=== PATIENT | male | born 1950 | race Caucasian/White ===

== ENCOUNTER → 2021-11-12 10:03 | Outpatient (CLI) | payer OTHER, SELFPAY ==
[2021-11-12 12:28] LABS: COVID19 -Nasal RAPID Negative (Negative)
== END ==
PROVIDERS: Referring Provider Orthopaedic Surgery Orthopaedic Surgery of the Spine; Visit Provider Family Medicine Sleep Medicine
DX: Z20.822 Contact with and (suspected) exposure to COVID-19 (principal)
CPT/HCPCS: 87635; C9803

== ENCOUNTER 2021-11-15 05:57 | Inpatient (IN) | payer OTHER, SELFPAY ==
[2021-11-09 08:52] VITALS: BMI 28.1
[2021-11-15] VITALS (15 sets, daily range): BP systolic 92–133; BP diastolic 58–78; PULSE 83–109; RESP 10–19; TEMP 36.3–36.6; O2SAT 89–100; BMI 28.1
[2021-11-15] MEDS: LACTATED RINGERS 1,000 ML 42 ML IV ×2 (06:50→09:53)
--- NOTE | 2021-11-15 07:20 | SUR.PREOP ---
CMS checks to legs bi lat are wnl. dp PULSES ARE PALPABLE AND MARKED.Pt. ambulatory with aid pre-op
--- NOTE | 2021-11-15 07:49 | PM.PREOP ---
Pre-operative Note COVID-19 COVID-19 status: Negative Result date/Date tested (Pos, Neg/Pending): 11/14/21 Criteria for continued procedure: Expected advancement of disease process, Possibility delay results in more complex future surgery or treatment, Increased loss of function, Continuing or worsening of significant or severe pain, Deterioration of the patient's condition or overall health and Delay expected to result in less-positive ultimate med/surg outcome Interval Note History & Physical reviewed/Exam performed by Physician: Yes Changes to H&P: No
[2021-11-15] MEDS: CEFAZOLIN 2 GM/20 ML SYRINGE IV ×2 (08:05→15:39)
[2021-11-15] MEDS: BUPIVACAINE LIPOSOME 266 MG/20 ML VIAL INJ (08:30)
[2021-11-15] MEDS: BUPIVACAINE 0.25% (PF) 30 ML, EPINEPHrine 0.3 MG INJ (08:30)
--- NOTE | 2021-11-15 08:43 | SUR.OPER ---
Prone on spine table, head in foam head support, padded chest and pelvic supports, gel pad at knees, lower legs supported by pillows; nipples, genitalia and toes free of pressure, arms secured on foam padded arm boards at <90 degrees abduction. Tape over blanket at thigh secured to table.
--- NOTE | 2021-11-15 13:10 | DI.RAD.S_ITS ---
PROCEDURE: XR LUMBAR SPINE 2-3V INDICATIONS: L2-3, L3-4 TLIF TECHNIQUE: 2 operative C-arm thin views of the lumbar spine were acquired. COMPARISON: None. FINDINGS: 2 operative C-arm views demonstrate presence of multilevel orthopedic fixation level bridging 4 contiguous levels. The levels appear to be L2 through L5. IMPRESSION: Operative imaging utilized for multilevel lumbar fusion surgery. Dictated by: Efe Denise M.D. on 11/15/2021 at 13:33 Approved by: Efe Denise M.D. on 11/15/2021 at 13:34
--- NOTE | 2021-11-15 13:30 | PM.OP.1 ---
Operative Date/Time/Diagnoses Date of procedure: 11/15/21 Time of procedure: 07:45 Pre-op diagnosis: 1. L2-3, L3-4, L4-5 spinal stenosis 2. History of L4-5 fusion 3. Lumbar spondylosis with radiculopathy Post-op diagnosis: same Procedure & Clinicians Procedure: 1. L2-3, L3-4 posterolateral and posterior interbody fusion 2. L2-3, L3-4 posterior interbody cage placement 3. L4-5 posterior non-segmental instrumentation removal 4. L4-5 revision laminectomy with exploration of fusion 5. L2-3, L3-4, L4-5 posterior segmental instrumentation with pedicle screw placement 6. L4-5 posterolatearl fusion 7. [place] of bone marrow from iliac crest through a separate incision 8. Utilization of microsurgical technique and operating microscope 9. Utilization of robotic assisted fusion Same procedure as scheduled: Yes Indications: Patient has been having chronic back pain and worsening lumbar radiculopathy. Patient had prior fusion surgery in 2007 and a and has been doing reasonably well until approximately 3 years ago. Patient failed multiple conservative management with worsening pain weakness and numbness in his lower extremities, left worse than right. Patient has been having difficulty performing activity of daily living. After discussing risks benefits of treatment options, patient elected proceed with surgery. Surgeon: Seng Anderson Per Diem Physical Therapist: Tawana Hinson Click Yes if Unassisted: No Anesthesia Type: General Operative Notes Closure Type: primary Specimen(s): none sent Prosthetic devices, grafts, tissues, transplants, or devices: Globus CREO MIS screws, Rise cages Estimated Blood Loss (mL): 100 Blood products transfused: none Procedure in detail: Patient was seen in the preoperative area. Risks and benefits of the surgery was discussed with the patient. Informed consent was obtained from the patient and placed in the chart. Surgical site was marked. Patient was taken to the operative room. General anesthesia was administered. Prophylactic antibiotic was given to the patient less than 30 min before the incision was made. Patient was placed into a prone position on the Reji table. Patient's back was then prepped and draped in the sterile fashion. Time-out was performed at this time. After patient was prepped and draped, patient's PSIS was palpated and marked bilaterally. Small 1 cm incision was made over the PSIS for placement of the reference probes. Two trocar was placed into the PSIS 1 on each side. The reference probe was attached to the trocar of the reference apparatus. At this time the C-arm imaging was used to confirm AP and lateral of L2,L3, L4, L5 vertebrae and merged the C-arm imaging using the [employer] robotic navigation system with the CT of the lumbar spine. After successful merging was completed and confirmed, skin marker was used to maricruz out the skin incision using the Ivisys robotic arm. Bilateral incision was made at this time. Using patient's previous scar incision was made over the L2, L3, L4, L5 interval on the left side. Fascia was incised in line with skin incision. Patient's previously placed hardware over the L4-5 level was identified by dissecting down to the level the hardware using a Bovie and a Akhtar. The locking caps which was removed using [employer] screwdriver. The locking fabian was then removed from the tulips of the pedicle screws using a Angelita. The pedicle screws were then removed using the screwdriver. The screws were found to have good purchase. Pre templated trajectory was used and guided using the [employer] robotic navigation system for left L2, L3, L4, L5 pedicle screws and right L2, L3, L4 L5 pedicle screws placement. This was done by using the robotic arm to guide the high-speed bur to make a cortical entry point. Next a drill was placed also using the robotic arm and guided using the navigation system drilling partially through bilateral L2, L3, L4, L5 pedicles. Next L2, L3, L4, L5 pedicle screws it was pre templated and measured was placed onto the power straddle bug driver and inserted into the pedicles bilaterally. After all 8 screws were placed C-arm imaging was taken of both AP and lateral to confirm the placement. Excellent placement of the screws were confirmed and a matched precisely with the pre planned screw placement using the navigation system. MARs retractor was inserted using [employer] guidence. ITYZus MARS retractors was placed inside the incision and docked onto the L2 and L3 lamina. Using microsurgical technique and operating microscope, a L2, L3 laminectomy and L2-3, L3-4 facetectomy was performed using a Kerrison rongeur. Patient was found have severe lateral recess and neural foramen stenosis which was fully decompressed after the laminectomy facetectomy. More than 75% of the facets were removed during the process of decompression rendering L2-3, L3-4 level grossly unstable and required a fusion procedure at the same time. The disc space at L2-3, L3-4 was identified, and a total diskectomy was performed at L2-3, L3-4 level. The endplates were decorticated using a rasp and shaver. The total diskectomy and decortication was performed at L2-3, L3-4 level in order to to accomplish a L2-3, L3-4 fusion. The local bone from the laminectomy and facetectomy was saved for local bone grafting. After the total diskectomy and decortication was completed, Trifecta bone graft material was combined with local bone that was harvested earlier. At this time, a separate skin is incision was made over the iliac crest. A Jamshidi needle was inserted into the iliac crest through a separate skin incision. 5 cc of bone marrow aspiration was obtained through the separate skin incision using a Jamshidi needle from the iliac crest. The bone marrow aspiration was combined with local bone and the Trifecta bone grafting material. The bone grafting material was placed into the L2-3, L3-4 interbody space along with a expandable cage. The cage was expanded to its maximum height using the torque limiting screwdriver. The disc preparation as well as the cage insertion were also performed under navigation guidance. After the cage was placed, AP and lateral C-arm imaging was taken to confirm placement of the cage and excellent position was confirmed. The fusion mass on the right side of L4-5 was exposed by performing a right-sided hemilaminectomy at L4-5 level. The hemilaminectomy was performed using the Kerrison rongeur to undercut the lamina as well removing additional epidural scar tissue for purpose of decompressing the epidural space. The fusion mass was explored and was found have visible motion indicating pseudoarthrosis. Globus MARS retractor was inserted and docked onto the L2-3, L3-4, L4-5 posterolateral gutter. Using the power drill, posterior-lateral decortication was performed at L2-3, L3-4, L4-5 level until bleeding cortical bone was identified. The remaining bone grafting material was placed into the L2-3, L3-4, L4-5 posterior lateral gutter he order to accomplish posterolateral fusion at the L2-3, L3-4, L4-5 level. At this time the tulips were attached to the L2, L3, L4-L5 pedicle screw shanks. This was done in L2, L3, L4-L5 pedicles bilaterally. After measuring the length of the rods, they were inserted into the tulips of the pedicle screws and locked in place using locking caps and torque limiting screwdriver bilaterally. Total 8 caps and 2 titanium rods was used in order to complete the posterior instrumentation construct. After all the hardware was placed, and confirmed with AP and lateral C-arm imaging, the wound was then irrigated with sterile normal saline and packed with Ray-Nelson gauze for 3 min to accomplish hemostasis. After the gauze was removed the deep fascia was closed with #1 Vicryl suture. The subcutaneous layer was closed with 2-0 Vicryl. The skin was closed with skin alfredo. Patient tolerated the procedure well. There were no complications. Neuro monitoring system was used to monitor patient's neurologic status throughout entire procedure. There was no disturbance of the neural monitoring signals throughout the case. Complications: none Post-operative Condition: stable Disposition: PACU Plan for aftercare: Admit to inpatient hospital
[2021-11-15] MEDS: fentaNYL 100 MCG/2 ML INJ IV ×2 (13:57→14:10)
[2021-11-15] MEDS: OXYCODONE/ACETAMINOPHEN 5/325 TABLET 1 TAB PO (14:06)
[2021-11-15] MEDS: HYDROMORPHONE 2 MG INJ IV (14:20)
[2021-11-15] MEDS: SODIUM CHLORIDE 0.9% 1,000 ML 100 ML IV (15:34)
[2021-11-15] MEDS: HYDROMORPHONE 0.5 MG INJ IV ×2 (20:03→23:33)
[2021-11-15] MEDS: ATORVASTATIN 20 MG TABLET 10 MG PO (20:14)
[2021-11-15] MEDS: DOCUSATE 100 MG CAPSULE PO (20:15)
[2021-11-15] MEDS: SENNOSIDES 8.6 MG TABLET 17.2 MG PO (20:15)
[2021-11-15] MEDS: GABAPENTIN 300 MG CAPSULE 900 MG PO (20:15)
[2021-11-15] MEDS: lisinopriL 20 MG TABLET PO (20:16)
[2021-11-15] MEDS: OXYCODONE IR 5 MG TABLET 10 MG PO (21:42)
[2021-11-16] VITALS (9 sets, daily range): BP systolic 102–131; BP diastolic 60–73; PULSE 65–100; RESP 16–19; TEMP 36.2–37.4; O2SAT 93–100
[2021-11-16] MEDS: TRAZODONE 50 MG TABLET PO ×2 (00:38→22:21)
[2021-11-16] MEDS: CYCLOBENZAPRINE 10 MG TABLET PO ×2 (00:38→22:21)
[2021-11-16] MEDS: CEFAZOLIN 2 GM/20 ML SYRINGE IV (00:39)
[2021-11-16 05:46] LABS: Hemoglobin 12.1 g/dL (13.5-17.5)
--- NOTE | 2021-11-16 07:56 | PM.PNPO.1 ---
Subjective Subjective Date Patient Seen: 11/16/21 Time Patient Seen: 07:56 Interval history: Patient is complaining of moderate low back pain this morning. He denies any new numbness or tingling since surgery but does note his left lower extremity is experiencing some numbness. This is his baseline, prior to surgery. He is not working with physical therapy yet. He is hoping to be discharged home tomorrow. Exam Vital Signs (past 8 hours): - 11/16/21 00:20 11/16/21 05:58 Temperature 98.2 F 97.9 F Pulse Rate 87 65 Respiratory Rate 18 17 Blood Pressure 131/73 109/64 Pulse Oximetry 97 99 Fraction of Inspired Oxygen 28 Oxygen Delivery Method Room Air Oxygen Flow Rate 2 Narrative Exam Narrative: Pleasant 71-year-old male, resting comfortably in bed, no acute distress. Dressing demonstrates bilateral serosanguineous drainage, no surrounding erythema or induration. Bilateral lower extremity: Motor functions are grossly intact, sensation is decreased left compared to right (patient notes this is his baseline), calves are soft and nontender to palpation. Objective Labs Result Diagrams: 11/16/21 05:20 Labs: Laboratory Results - last 24 hr 11/16/21 05:20 Hgb 12.1 L Hct 38.0 L PFSH Medical History Anxiety about health HLD (hyperlipidemia) HTN (hypertension) Sciatica Spinal stenosis of lumbar region with neurogenic claudication Surgical History History of fusion of lumbar spine (2007) Hx of bilateral cataract extraction Social History household members: none Smoking Status: Former smoker alcohol intake: former Assessment & Plan Post-op Postoperative Procedures: Procedures Operation Date: 11/15/21 07:45 Actual Procedure Side Surgeon p L2-3, L3-4 TLIF with posterior instrumentation, L4-5 HWR, L2-5 PSF with instrumentaion -Robot Not Applicable Seng Anderson MD Postoperative day: 1 Postoperative status: doing well Postoperative status narrative: Stable status post L4-5 hardware removal, L2-3, L3-4 TLIF, L2-5 PSF Postoperative plan narrative: -mobilize with PT. Weightbearing as tolerated. Limit bending, lifting, twisting x6 weeks -continue with multimodal pain management. I encouraged him to take is Tylenol and we will change this to scheduled. He will continue with oxy and Flexeril as needed -DC home, hopefully tomorrow, pending PT -dressing change today, please call me if there is any active bleeding Quality VTE Deep Vein Thrombosis/Pulmonary Embolism Present on Admission: No
[2021-11-16] MEDS: CHOLECALCIFEROL (VITAMIN D3) 400 UNIT TABLET PO (08:08)
[2021-11-16] MEDS: DOCUSATE 100 MG CAPSULE PO ×2 (08:08→20:13)
[2021-11-16] MEDS: OXYCODONE IR 5 MG TABLET 10 MG PO ×2 (08:08→17:49)
--- NOTE | 2021-11-16 09:47 | PT.IIE ---
Current Diagnoses Spinal stenosis, lumbar region with neurogenic claudication (11/15/21) Arthrodesis status (11/15/21) Surgery Performed Operation Date: 11/15/21 07:45 Actual Procedures p L2-3, L3-4 TLIF with posterior instrumentation, L4-5 HWR, L2-5 PSF with instrumentaion -Robot(Not Applicable) - Seng Anderson MD Medical History (Last Reviewed 11/16/21 @ 07:57 by Tawana Hinson PAMichael) Anxiety about health HLD (hyperlipidemia) HTN (hypertension) Sciatica Spinal stenosis of lumbar region with neurogenic claudication Physical Therapy Inpatient Evaluation/Re-Eval M1 PT/OT-IP Prior Functional Status Start: 11/16/21 12:11 Freq: NEEDED Status: Active Protocol: Document 11/16/21 09:47 AB (Rec: 11/16/21 12:24 AB [id number]) Medical Review Prior Functional Status Medical History Reviewed Yes Communication able to make needs known Mobility and Gait pt stated that he is modified independent with all mobilities and ambulation without AD but occasionally uses a forearm crutch depending on back pain Social History Household Members none Living Arrangements RV Number of Floors (Floors) One Floor Number of Stairs To Enter/Railing? 2 steps L rail to enter Home Environment Standard Height Toilet,Walk in Shower Home Equipment Front Wheel Walker,Crutches, Manual Wheelchair,Hand Held Shower Additional Social History Comment stated that his friend that lives next door will be able to assist him as needed. M2 PT-IP Current Condition Start: 11/16/21 12:11 Freq: NEEDED Status: Active Protocol: Document 11/16/21 09:47 AB (Rec: 11/16/21 12:24 AB [id number]) Physical Therapy Current Condition Current Condition Evaluation Date 11/16/21 Treatment Diagnosis L2-3,3-4,4-5 TLIF; difficulty in walking Onset Date 11/15/21 M3 PT-IP Subjective Start: 11/16/21 12:11 Freq: NEEDED Status: Active Protocol: Document 11/16/21 09:47 AB (Rec: 11/16/21 12:24 AB [id number]) Subjective Physical Therapy Visit Type Type Initial Evaluation Visit Start Time 09:47 Visit Stop Time 10:28 Total Visit Minutes 41 Number of EQUIPMENT SERVICE TECHNICIAN Visits 0 Physical Therapy Visit Comments Patient Comments agreeable to do PT; Therapy Pain Assessment Pain When Pain Assessed At Rest Pain Present Pain Present Pain Reported Location Lower Back Intensity 10 Scale Used Numeric (0 - 10) Pain Management Techniques Apply Cold,Distraction, Modification of Treatment,Re- positioning,Timing of Activity with Medications M4 PT-IP Mobility and Gait Start: 11/16/21 12:11 Freq: NEEDED Status: Active Protocol: Document 11/16/21 09:47 AB (Rec: 11/16/21 12:24 AB [id number]) PT-Bed Mobility Assessment Rolling Type of Rolling Log Rolling Level of Assist Minimal Assistance Supine to Sit Supine to Sit Minimal Assistance PT-Transfer Assessment Sit to and From Stand Sit to and from Stand Maximum Assistance,1 Person Assistance,Use of Upper Extremities Equipment Transfer Assistive Device Gait Belt,Front Wheeled Walker Orthotic/Prosthetic Devices or Brace: No Transfers Transfer Destination Chair Transfer Technique ambulated Transfer Ability Level of Assist Moderate Assistance,1 Person Assistance,Use of Upper Extremities Comments Mobility Comments educated pt on back precautions and log roll bed mobility. completed log roll supine to sit min A and max cues. able to sit on EOB SBA. stated that B thighs are still numb. completed sit to stand max A and max cues. ambulated ~ 12 ft to the chair using FWW mod A and cues for steadiness. pt sat on the chair and positioned. agreed to sit up on the chair. call light and table placed within reach. Gait Assessment Gait Gait Assistance Required: Moderate Assistance Distance (Feet) 12 Able to Maintain Weight Bearing Status Yes During Gait Assistive Devices Assistive Device Gait Belt,Front Wheeled Walker Orthotic/Prosthetic Devices or Brace: No Gait Deviations General Gait Pattern Decreased Stride Length, Decreased Feet Clearance,Step- to Gait,Wide Based Gait Factors Limiting Gait Function Factors Limiting Gait Function Decreased Activity Tolerance, Decreased Sensation,Decreased Strength,Limited Range of Motion,Pain,Poor Balance,Poor Safety Awareness PT-Balance Assessment Sitting Balance and Reactions Static Sitting Balance Ability Good Dynamic Sitting Balance Ability Good Standing Balance and Reactions Static Standing Balance Ability Fair Dynamic Standing Balance Ability Fair Device Used FWW M5 PT-IP Objective Assessments Start: 11/16/21 12:11 Freq: NEEDED Status: Active Protocol: Document 11/16/21 09:47 AB (Rec: 11/16/21 12:24 AB [id number]) Orientation Orientation/Cognition Level of Alertness Alert Orientation Name,Place,Situation Language Function Ability No Deficits Noted Safety Awareness Decreased Safety Awareness Memory Description Short Term Impaired Gross Range of Motion Lower Extremity ROM Assessment Within Functional Limits Strength Lower Extremity Strength Assessment Bilaterally Impaired Hip 3+/5 Knee 4-/5 Coordination Assessment Gross Coordination Gross Coordination WNL Sensation Assessment Sensation Gross Sensation Right LE Impaired,Left LE Impaired Sensation Description Numbness Comments Sensation Comments stated that B anterior thighs are still numb Muscle Tone Muscle Tone WNL Yes M6 PT-IP Treatment Start: 11/16/21 12:11 Freq: NEEDED Status: Active Protocol: Document 11/16/21 09:47 AB (Rec: 11/16/21 12:24 AB [id number]) Physical Therapy Treatment Education Education Provided Precautions,Weight Bearing Status,Post-Op Packet,Safety M7 PT-IP Assessment and Plan Start: 11/16/21 12:11 Freq: NEEDED Status: Active Protocol: Document 11/16/21 09:47 AB (Rec: 11/16/21 12:24 AB [id number]) PT Summary Assessment and Plan Potential Rehabilitation Potential Good Status of Condition at Evaluation Evolving Summary Impairments Pain,ROM,Strength,Balance, Coordination,Sensation,Tone, Cognition,Bed Mobility, Transfers,Gait,Activity Tolerance Assessment Summary pt requiring mod to max A using FWW for mobility. pt lives alone and will not have consistent assistance at home. dc plan depending on progress but may require SNF rehab at this time. will continue to assess progress. Goals Bed Mobility Goal Independent Transfer Goal Independent,Front Wheeled Walker Gait Goal Independent,Front Wheel Walker Gait Distance 200 Other Goals improve ambulation using forearm crutch 250 ft mod I up/down 2 steps L rail mod I Days to Meet Goals 10 Frequency of Treatment Frequency Of Treatment Twice a Day Treatment Plan Physical Therapy Treatment Plan Bed Mobility Training,Transfer Training,Gait Training, Therapeutic Exercise,Balance Retraining,Post Op Education, Discharge Planning,Hot or Cold Pack,Neuromuscular Re-ed, Coordination Retraining,Manual Therapy Precautions Lumbar Precautions Log Roll,No Twisting,Limit Bending,Lifting Restriction of 10 lbs,Gait Belt above Incisional Area Recommendations To Nursing Amount of Assist Needed 1 Person Assist Discharge Recommendations PT Discharge Recommendations Home with 02/01 Assist Available,Home Health,SNF Rehab,Home vs SNF Transportation Needs at Discharge Private Vehicle,Wheelchair/ Cabulance
[2021-11-16] MEDS: HYDROMORPHONE 0.5 MG INJ IV ×2 (09:56→20:07)
--- NOTE | 2021-11-16 11:19 | CM.DANOTE ---
Patient is a 71 yo male who was admitted on 11/15/21 for TLIF. Pt has [facility] for insurance and his PCP is not listed. EMR was reviewed. Per Ortho PA, pt tolerated surgery well and has pain controlled and to work with PT/OT today with likely plan of d/c home tomorrow pending progress. PT/OT ordered and pending. SW met bedside with pt and explained role and he confirms he lives in his RV alone in [facility] at the [facility] grounds but has good supportive neighbor friends who have committed to providing assist at d/c and helping get groceries and anything needed. Pt states he has had 2 other similar surgeries and has been able to discharge home with no needs. Pt denies any hx of HH or SNF and does not anticipate any needs at d/c. Pt confirms his friend plans to transport him home at discharge and pt is hopeful discharge can happen tomorrow. Plan: SW to follow closely for PT/OT eval and recommendations to confirm safe plan of home via friend POV and neighbor assist and any further identified discharge planning needs. ASHLIE Hagen Discharge Planning/Care Management CM Discharge Assessment Start: 11/16/21 11:17 Freq: Status: Active Protocol: Document 11/16/21 11:17 BF (Rec: 11/16/21 11:18 BF [id number]) Discharge Planning Assessment Assigned Dice Spotter ASHLIE Mcintyre Advance Directives? No Advance Directives on File No History Provided By Patient,Medical Record Has Patient been admitted in last 30 No days? Prior Living Arrangements RV Household Members none Type of transporation used prior to Drives own vehicle admit Independent with ADL's Yes Is patient alert and oriented? Yes Caregiver for Another No Patient/Family Preference OP PT Therapy Comment Pending PT/OT Barriers to Discharge No Discharge Plan Home Transportation Arrangement friend plans to transport at d /c Referrals Initiated None needed Additional Comment Pending PT/OT eval and recommendations, r/o HH Whiteboard Updated in Patient Room with Yes name and ext. # of Dice Spotter Review Status In Process Please Provide Date Initial DC 11/16/21 Assessment Was Performed Next Review Type Continued Stay Review Pre-Anesthesia Assessment Start: 11/09/21 08:52 Freq: Status: Active Protocol: Document 11/09/21 08:52 CAB (Rec: 11/09/21 09:45 CAB [id number]) Pre-Anesthesia Assessment Preferred Name Kristian Patient Information Reviewed Via Phone Assessment Assessment Completed With Patient Diagnostic Results BMP/CMP,CBC,EKG Comment Outside labs/ECG scanned, COVID screen-needs to schedule Primary Care Provider Benjamín Felix Rai Seen Specialist in Last 12 Months Yes Specialist Seen Noteman,Orthopedist, Urologist Primary Language Honduran Strip Tank Tender Required No Height 172.72 cm Weight 83.915 kg Body Mass Index (BMI) 28.1 Hearing Ability Normal Visual Assist Glasses Dentition Type Teeth, Natural Present Barriers to Learning None Hx Anesthesia Reactions No Hx Family Anesthesia Reaction No Hx Malignant Hyperthermia No Hx Blood Transfusions No Anesthesia Review Requested No alcohol intake former Smoking Status Former smoker Tobacco type pipe how long ago did patient quit smoking Quit in his middle 50's Substance Use Type does not use Pain Present Pain Reported Musculoskeletal Symptoms Back Pain,Difficulty Walking, Limited Range of Motion History of Falling (Recent or History of No ) Patient is completely paralyzed or No completely immobile Mental Status Oriented to own ability Is patient on oxygen? No Does patient have GARCIA/SOB No Hx Sleep Apnea No Currently Taking a Beta Lina No Can You Climb a Flight of Stairs Without Yes SOB Hx Chest Pain No Hx SOB No Hx Syncope or Dizziness No Anti-Coagulant Therapy No Has a Loader Operator Supervisor No Cardiac Testing No Hx Pacemaker/ICD No Pacemaker Rep Required? No Cardiac Clearance Received Not Applicable Diet Type At Home Regular dysphagia No Urinary Catheter Present No Hx Urinary Self Catheterization No Diabetes No Hx Drug Resistant Organism No Presence of External or Internal Medical Yes: Bilateral eye IOLs, Devices lumbar spine Have you had any close contact with No someone diagnosed with COVID-19? Received a COVID vaccine? Yes: Declines booster Received all doses? No Marital Status Lives With none Prior Living Arrangements Support System Friend(s) Does the Patient Have Assistance After Yes: Lives in , neighbors Surgery will assist during the day Patient Discharge Plan Description Return Home Comment Pt advised 1-2 day length of stay per surgeon Feels Safe in Current Environment Yes Been Physically Hurt or Threatened By a No Person in Current Environment Do you have thoughts of harming yourself None or others? Are you currently considering suicide? No Do you have a plan to hurt yourself or No Plan others? Do You Have Any Spiritual Beliefs That No May Affect Your HC Choices? Do You Have Any Cultural Practices That No May Affect Your HC Choices? Comment Yobani Who Can We Speak to About Patient's Care Family, friends Identifying Code for Release of Patient Declines to issue Information Health Care Proxy/Next of Kin Ml (daughter) Health Care Proxy Emergency Contact Name Ml (daughter) Emergency Contact Advance Directives? No Power of Pawn Broker No PAC Instructions Durable medical equipment, Medications to take/avoid, Nasal antibiotic,No ETOH/ petroleum product on skin DOS, NPO,Post-op transportation,Pre -surgical wash,Sensory aids, Sturdy shoes/comfortable clothes,Do not bring valuables and remove jewelry
--- NOTE | 2021-11-16 12:56 | OT.IP.EVAL ---
Current Diagnoses Spinal stenosis, lumbar region with neurogenic claudication (11/15/21) Arthrodesis status (11/15/21) Surgery Performed Operation Date: 11/15/21 07:45 Actual Procedures p L2-3, L3-4 TLIF with posterior instrumentation, L4-5 HWR, L2-5 PSF with instrumentaion -Robot(Not Applicable) - Seng Anderosn MD Past Medical History (Last Reviewed 11/16/21 @ 07:57 by Tawana Hinson PA-C) Anxiety about health History of fusion of lumbar spine (2007) HLD (hyperlipidemia) HTN (hypertension) Hx of bilateral cataract extraction Sciatica Spinal stenosis of lumbar region with neurogenic claudication Surgical History (Last Reviewed 11/16/21 @ 07:57 by Tawana Hinson PA-C) History of fusion of lumbar spine (2007) Hx of bilateral cataract extraction Occupational Therapy Inpatient Evaluation/Re-Eval M1 PT/OT-IP Prior Functional Status Start: 11/16/21 12:11 Freq: NEEDED Status: Active Protocol: Document 11/16/21 12:27 [facility] (Rec: 11/16/21 13:31 [facility] [id number]) Medical Review Prior Functional Status Medical History Reviewed Yes Communication able to make needs known Mobility and Gait pt stated that he is modified independent with all mobilities and ambulation without AD but occasionally uses a forearm crutch depending on back pain Activities of Daily Living and IADL's Pt states able to do all needs of ADL and IADl with increased time due to his back pain. Social History Household Members none Living Arrangements RV Number of Floors (Floors) One Floor Number of Stairs To Enter/Railing? 2 steps L rail to enter and another 2 steps with get into the RV, entrance way too narrow for FWW per pt. Home Environment Standard Height Toilet,Walk in Shower Home Equipment Front Wheel Walker,forearm Crutches, Manual Wheelchair,Hand Held Shower Additional Social History Comment stated that his friend that lives next door will be able to assist him as needed. M2 OT-IP Current Condition Start: 11/16/21 13:09 Freq: Status: Active Protocol: Document 11/16/21 12:27 [facility] (Rec: 11/16/21 13:31 [facility] [id number]) Occupational Therapy Current Condition Current Condition Evaluation Date 11/16/21 Treatment Diagnosis S/p L2-3, L3-4 TLIF L4-5 HWR, L2-5 PSF with inst Diagnosis Onset Date 11/15/21 Post Operative Precautions Lumbar Precautions Log Roll,No Twisting,Limit Bending,Lifting Restriction of 10 lbs,Gait Belt above Incisional Area M3 OT- IP Subjective and Pain Start: 11/16/21 13:09 Freq: Status: Active Protocol: Document 11/16/21 12:27 [facility] (Rec: 11/16/21 13:31 [facility] [id number]) OT- Subjective Occupational Therapy Visit Type Type Initial Evaluation Visit Start Time 12:27 Visit Stop Time 12:56 Total Visit Minutes 29 Occupational Therapy Visit Comments Patient Comments Pt agreed to get up to brush his teeth and wanting to get back to bed. Patient/Caregiver Goals TO go home. OT Pain Assessment Pain When Pain Assessed During Mobility Pain Present Pain Present Pain Reported Location Lower Back Intensity 7 Scale Used Numeric (0 - 10) M4 OT- IP ADL's Start: 11/16/21 13:09 Freq: Status: Active Protocol: Document 11/16/21 12:27 [facility] (Rec: 11/16/21 13:31 [facility] [id number]) OT [id number] General Evaluation Self-Feeding Ability Independent OT ADL-Grooming General Evaluation Grooming Ability Standby Assistance Areas Needing Assistance Retrieving/Set-up of Grooming Items OT ADL-Oral Care General Eval Oral Care Ability Standby Assistance Areas of Assistance Retrieving/Set-Up of Items Comments Oral Care Comments Pt needing vc to hinge at his hips versus spit into a cup to best follow his back precautions. OT ADL-Dressing General Eval Lower Body Dressing Ability Maximum Assistance Areas Needing Assistance Socks Comments OT Dressing Comments Able to practice LB dressing with of utility worker driver and sock aid. Pt states to just wear slip on shoes at home. OT ADL-Toileting Comments OT Toileting Comments Pt not having to go at this time. OT ADL-Bathing Comments OT Bathing Comments Pt states willing to shower tomorrow. M5 OT- IP IADL's Start: 11/16/21 13:09 Freq: Status: Active Protocol: Document 11/16/21 12:27 [facility] (Rec: 11/16/21 13:31 [facility] [id number]) OT-Instrumental Activities of Daily Living Home Safety Awareness Awareness of Need for Assistance at Home Good Awareness Ability to Problem Solve Emergency Able to Problem Solve Situations Meal Preparation Meal Preparation Comments Pt would benefit from assist if going home. Set Up And Lay Out Inspector Set Up And Lay Out Inspector Comments Pt would benefit from assist if going home. M6 OT- IP Functional Cognition Start: 11/16/21 13:09 Freq: Status: Active Protocol: Document 11/16/21 12:27 [facility] (Rec: 11/16/21 13:31 [facility] [id number]) Cognitive Factors Limiting Selfcare Function Cognitive Ability Level of Alertness Alert Patient Orientation Name,Place,Situation Attention Span Ability Capable of Focused Attention, Capable of Sustained Attention Ability to Follow Commands Able to Follow One Step Commands Safety Awareness Decreased Recall of Precautions,Decreased Ability to Apply Precautions Cognitive Comments Cognitive Assessment Comments Pt needing cues to recall no lifting for back precautions. Pt needing reminders to keep the FWW in front of him and turn his body as he is turning the FWW. Pt needing cues to remember and follow log rolling. Pt insisting that he was going to order nuts for himself and having his credit card out on the tray table. Suggested to pt best to order at a later date as he is a little groogy and may not be thinking as clearly as he usually does since he is on pain medications. OT- Vision and Hearing OT- Hearing Assessment OT- Hearing Assessment WFL OT- Vision Assessment Visual Acuity Glasses All The Time M7 OT- IP Mobility and Balance Start: 11/16/21 13:09 Freq: Status: Active Protocol: Document 11/16/21 12:27 [facility] (Rec: 11/16/21 13:31 [facility] [id number]) OT- Bed Mobility Assessment Sit to Supine Sit to Supine Assist Minimal Assistance OT-Transfer Assessment Sit to and From Stand Sit to and from Stand Moderate Assistance,1 Person Assistance Transfers Transfer Ability Contact Guard Assistance, Minimal Assistance Technique Transfer Destination Bed,Chair Transfer Technique Stand Step Pivot Devices Transfer Assistive Devices Gait Belt,Front Wheeled Walker Comments Mobility Comments MODA to stand as pt having trouble coming up to stand and needing cues to push up with his hands on the armrest of the recliner first. Once on his feet from cga to EDWIN for assist. OT- Balance Assessment Sitting Balance and Reactions Static Sitting Balance Ability Good Standing Balance and Reactions Static Standing Balance Ability Fair M8 OT- IP Objective Assessments Start: 11/16/21 13:09 Freq: Status: Active Protocol: Document 11/16/21 12:27 [facility] (Rec: 11/16/21 13:31 [facility] [id number]) OT-Muscle Tone Assessment Muscle Tone WNL Yes M9 OT- IP Assessment and Plan Start: 11/16/21 13:09 Freq: Status: Active Protocol: Document 11/16/21 12:27 [facility] (Rec: 11/16/21 13:31 [facility] [id number]) OT Summary Assessment and Plan Potential Rehabilitation Potential Good Analytic Complexity at Evaluation Low Summary OT Impairments Pain,Balance,Functional Mobility,Grooming,Dressing, Toileting,Bathing,Toilet Transfers,Shower Transfers, Activity Tolerance Progress Towards Goals Slow Progress due to Pain,Slow Progress due to Activity Tolerance Assessment Summary Pt low complexity and main barriers are pain, steps and now needing assist for ADL and mobility needs. Pt lives alone and has neighbors to assist as needed. Pending progress, pt may benefit from a short rehab stay versus home with 24/7 assist and home health. Goals Grooming Goal Independent Dressing Goal Independent Toileting Goal Independent Bathing Goal Minimal Assistance Toilet Transfer Goal Independent Shower Transfer Goal Standby Assistance Days to Meet Goals 7 Frequency of Treatment Frequency Of Treatment Once a Day Treatment Plan OT Treatment Plan ADL Training,Functional Mobility,Patient/Family Education,Discharge Planning Other Treatment Recommendations and Next shower Treatment Focus Discharge Recommendations OT Discharge Recommendations Home with 24/7 Assist Available,Home Health,SNF Rehab,Home vs SNF Home Equipment Needs shower chair Transportation Needs at Discharge Private Vehicle,Wheelchair/ Cabulance
--- NOTE | 2021-11-16 14:17 | PT.IPTN ---
Current Diagnoses Spinal stenosis, lumbar region with neurogenic claudication (11/15/21) Arthrodesis status (11/15/21) Surgery Performed Operation Date: 11/15/21 07:45 Actual Procedures p L2-3, L3-4 TLIF with posterior instrumentation, L4-5 HWR, L2-5 PSF with instrumentaion -Robot(Not Applicable) - Seng Anderson MD Physical Therapy Treatment Note M2 PT-IP Current Condition Start: 11/16/21 12:11 Freq: NEEDED Status: Active Protocol: Document 11/16/21 09:47 AB (Rec: 11/16/21 12:24 AB [id number]) Physical Therapy Current Condition Current Condition Evaluation Date 11/16/21 Treatment Diagnosis L2-3,3-4,4-5 TLIF; difficulty in walking Onset Date 11/15/21 M3 PT-IP Subjective Start: 11/16/21 12:11 Freq: NEEDED Status: Active Protocol: Document 11/16/21 13:43 KS (Rec: 11/16/21 15:08 KS [id number]) Subjective Physical Therapy Visit Type Type Treatment Note Visit Start Time 13:43 Visit Stop Time 14:17 Total Visit Minutes 34 Number of TRACTOR OPERATOR Visits 1 Physical Therapy Visit Comments Patient Comments agreeable to do PT; Therapy Pain Assessment Pain When Pain Assessed At Rest Pain Present Pain Present Pain Reported M4 PT-IP Mobility and Gait Start: 11/16/21 12:11 Freq: NEEDED Status: Active Protocol: Document 11/16/21 13:43 KS (Rec: 11/16/21 15:08 KS [id number]) PT-Bed Mobility Assessment Rolling Type of Rolling Log Rolling,Roll to Left Level of Assist Standby Assistance Supine to Sit Supine to Sit Standby Assistance Sit to Supine Sit to Supine Contact Guard Assistance Scooting Scooting to Edge of Bed Standby Assistance PT-Transfer Assessment Sit to and From Stand Sit to and from Stand Contact Guard Assistance,1 Person Assistance,Use of Upper Extremities Equipment Transfer Assistive Device Gait Belt,Front Wheeled Walker Orthotic/Prosthetic Devices or Brace: No Transfers Transfer Destination Bed Transfer Technique ambulated Transfer Ability Level of Assist Contact Guard Assistance,1 Person Assistance,Use of Upper Extremities Comments Mobility Comments Pt in bed upon arrival and agreeable to ambulate. Able to recall 3/3 spinal precautions . SBA and cues for logroll and sup<>sit. CGA for sit<>stand w/ FWW. Pt c/o increased pain during sit<>Stand but reports decrease in pain when standing and ambulating. Pt ambulated ~30 ft in bedroom and then additional 100 ft to practice stairs w/ FWW SBA. He ascended /descended 3 steps w/ L rail SBA w/ step over step ascending and step to pattern descending. He then ambulated additional 100 ft back to room w/ less WB through BUE on FWW and transferred back to bed CGA. Pt left in bed w/ all needs in reach. Gait Assessment Gait Gait Assistance Required: Standby Assistance,Contact Guard Assist,1 Person Assist Distance (Feet) 200 Able to Maintain Weight Bearing Status Yes During Gait Assistive Devices Assistive Device Gait Belt,Front Wheeled Walker Orthotic/Prosthetic Devices or Brace: No Gait Deviations General Gait Pattern Decreased Stride Length, Decreased Feet Clearance,Wide Based Gait Factors Limiting Gait Function Factors Limiting Gait Function Decreased Activity Tolerance, Decreased Strength,Limited Range of Motion,Pain,Poor Balance Comments Gait Comments Please refer to mobility section for details. Stair Climbing Assessment Evaluation Level of Assist On Stairs Standby Assistance,1 Person Assistance Devices Stair Climbing Assistive Devices Left Railing Technique/Endurance Stair Climbing Direction Ascend and Descend Stair Climbing Technique Step Over Step,Step to Step Number of Steps Climbed 3 Stair Climbing Set # Repetitions (reps) 1 Comments Stair Climbing Comments Pt ascended/descended 3 steps w/ L rail SBA w/ step over step pattern ascending and step to pattern descending. Pt feels safe to complete steps leading into home. PT-Balance Assessment Sitting Balance and Reactions Static Sitting Balance Ability Good Dynamic Sitting Balance Ability Good Standing Balance and Reactions Static Standing Balance Ability Good Dynamic Standing Balance Ability Good Device Used FWW M5 PT-IP Objective Assessments Start: 11/16/21 12:11 Freq: NEEDED Status: Active Protocol: Document 11/16/21 09:47 AB (Rec: 11/16/21 12:24 AB [id number]) Orientation Orientation/Cognition Level of Alertness Alert Orientation Name,Place,Situation Language Function Ability No Deficits Noted Safety Awareness Decreased Safety Awareness Memory Description Short Term Impaired Gross Range of Motion Lower Extremity ROM Assessment Within Functional Limits Strength Lower Extremity Strength Assessment Bilaterally Impaired Hip 3+/5 Knee 4-/5 Coordination Assessment Gross Coordination Gross Coordination WNL Sensation Assessment Sensation Gross Sensation Right LE Impaired,Left LE Impaired Sensation Description Numbness Comments Sensation Comments stated that B anterior thighs are still numb Muscle Tone Muscle Tone WNL Yes M6 PT-IP Treatment Start: 11/16/21 12:11 Freq: NEEDED Status: Active Protocol: Document 11/16/21 13:43 KS (Rec: 11/16/21 15:08 KS [id number]) Physical Therapy Treatment Education Education Provided Precautions,Weight Bearing Status,Post-Op Packet,Safety Other Treatments Other Treatment Performed Discussed at home safety. Pt w / limited space for FWW, may trial forearm crutch prior to d/c since that is what pt uses at home prior. Pt agreeable to using FWW for longer distances and outside of RV. M7 PT-IP Assessment and Plan Start: 11/16/21 12:11 Freq: NEEDED Status: Active Protocol: Document 11/16/21 13:43 KS (Rec: 11/16/21 15:08 KS [id number]) PT Summary Assessment and Plan Potential Rehabilitation Potential Good Status of Condition at Evaluation Evolving Summary Impairments Pain,ROM,Strength,Balance, Coordination,Sensation,Tone, Cognition,Bed Mobility, Transfers,Gait,Activity Tolerance Assessment Summary Pt much improved w/ mobility this PM. SBA for bed mobility, CGA for sit<>Stand, and SBA for 200 ft w/ FWW and 3 steps w/ L rail. Occasional cues for safety, but pt w/ good awareness of precautions. Pt feels safe to return home, may trial use of forearm crutch if safe since pt limited on space for FWW. Pt may go home when medically stable. He will benefit from outpatient PT when appropriate to improve spinal stability and mobility. Goals Bed Mobility Goal Independent Transfer Goal Independent,Front Wheeled Walker Gait Goal Independent,Front Wheel Walker Gait Distance 200 Other Goals improve ambulation using forearm crutch 250 ft mod I up/down 2 steps L rail mod I Days to Meet Goals 10 Frequency of Treatment Frequency Of Treatment Twice a Day Treatment Plan Physical Therapy Treatment Plan Bed Mobility Training,Transfer Training,Gait Training, Therapeutic Exercise,Balance Retraining,Post Op Education, Discharge Planning,Hot or Cold Pack,Neuromuscular Re-ed, Coordination Retraining,Manual Therapy Precautions Lumbar Precautions Log Roll,No Twisting,Limit Bending,Lifting Restriction of 10 lbs,Gait Belt above Incisional Area Recommendations To Nursing Amount of Assist Needed 1 Person Assist Discharge Recommendations PT Discharge Recommendations Home with Assistance,Home Health,Outpatient PT Transportation Needs at Discharge Private Vehicle,Wheelchair/ Cabulance
--- NOTE | 2021-11-16 18:08 | PC.NURSE ---
Pt is AxOx4, needs 1 person assistance with FWW, c/o pain on his back 02/19 and recieved PRN Oxy 10mg x2. Last one given at 1800. Pt also requested PRN IV Dilaudid 0.5mg after PT/OT. It was effective. Otherwise, no problem identified. Valdez is removed and pt is voiding well. No other changes. Continue monitor
[2021-11-16] MEDS: GABAPENTIN 300 MG CAPSULE 900 MG PO (20:11)
[2021-11-16] MEDS: lisinopriL 20 MG TABLET PO (20:11)
[2021-11-16] MEDS: ATORVASTATIN 20 MG TABLET 10 MG PO (20:13)
[2021-11-16] MEDS: SENNOSIDES 8.6 MG TABLET 17.2 MG PO (20:13)
[2021-11-16] MEDS: ACETAMINOPHEN 325 MG TABLET 650 MG PO (22:22)
[2021-11-17] VITALS (11 sets, daily range): BP systolic 92–127; BP diastolic 52–68; PULSE 67–91; RESP 16–19; TEMP 36.3–36.8; O2SAT 91–99
--- NOTE | 2021-11-17 08:00 | P.PN_ITS ---
Subjective Subjective Date Patient Seen: 11/17/21 Time Patient Seen: 08:00 Interval history: Patient is complaining of moderate to severe low back pain this morning. He is having new sciatic type pain down bilateral posterior legs. He has had episodes with this prior to surgery but you is new since surgery. He denies any dizziness or lightheadedness with sitting up or standing. Her center Exam Vital Signs (past 8 hours): - 11/17/21 05:52 11/17/21 06:17 Temperature 97.4 F L Pulse Rate 91 H 82 Respiratory Rate 17 Blood Pressure 92/56 L 100/52 L Pulse Oximetry 91 Fraction of Inspired Oxygen 28 Oxygen Delivery Method Room Air Oxygen Flow Rate 0 Narrative Exam Narrative: Very pleasant 71-year-old male, resting comfortably in bed, no acute distress. The dressing is saturated with serosanguineous drainage, Antionette dressing was removed weeks and incision demonstrates no active bleeding. No surrounding erythema or induration. Bilateral lower extremity: Motor functions are grossly intact, sensation is grossly intact to light touch, calves are soft and nontender to palpation. Objective Labs Result Diagrams: 11/16/21 05:20 PFS Medical History Anxiety about health HLD (hyperlipidemia) HTN (hypertension) Sciatica Spinal stenosis of lumbar region with neurogenic claudication Surgical History History of fusion of lumbar spine (2007) Hx of bilateral cataract extraction Social History household members: none Smoking Status: Former smoker alcohol intake: former Assessment & Plan Post-op Postoperative Procedures: Procedures Operation Date: 11/15/21 07:45 Actual Procedure Side Surgeon p L2-3, L3-4 TLIF with posterior instrumentation, L4-5 HWR, L2-5 PSF with instrumentaion -Robot Not Applicable Seng Anderson MD Postoperative day: 2 Postoperative status narrative: -stable status post S L4-5 hardware removal, L2- 3, L3-4 TLIF, L2-5 PSF -hypotension, asymptomatic Postoperative plan narrative: -mobilize with PT. Limit bending, lifting, twisting x6 weeks -continue with multimodal pain management. A change his Tylenol to scheduled and encouraged him to try Vistaril in addition of the Flexeril -I will add a steroid for the next 2 days for his new onset sciatica. We may need to consider discharging home with a Medrol Dosepak -disposition: Possibly home today versus tomorrow, depending on pain control and how well he does with physical therapy Quality VTE Deep Vein Thrombosis/Pulmonary Embolism Present on Admission: No
[2021-11-17] MEDS: DOCUSATE 100 MG CAPSULE PO ×2 (08:24→20:17)
[2021-11-17] MEDS: ACETAMINOPHEN 325 MG TABLET 650 MG PO ×4 (08:24→23:27)
[2021-11-17] MEDS: OXYCODONE IR 5 MG TABLET 10 MG PO ×2 (08:24→23:27)
[2021-11-17] MEDS: CHOLECALCIFEROL (VITAMIN D3) 400 UNIT TABLET PO (08:24)
--- NOTE | 2021-11-17 08:36 | OT.IPNOTE ---
Checked on pt for showering and at this time pt is too much pain and nursing just about to give pt pain medications. Pt requesting ice pack for his neck. To check on the pt later.
--- NOTE | 2021-11-17 10:16 | OT.IPNOTE ---
Check on pt again for OT treatment and pt states still hurting too much and trying to get comfortable. Pt aware PA ordering steroid for pt due to new onset sciatica pain. Pt wanting to shower tomorrow in AM.
--- NOTE | 2021-11-17 11:10 | PT-IP ANOTE ---
Attempted to see pt at 11:07 AM, pt refused PT this AM due to high level of pain and hopeful of receiving steroids. Will check back in PM.
--- NOTE | 2021-11-17 13:25 | PT-IP ANOTE ---
Attempted to see pt at 13:25, pt refused therapy this PM and states he is still having shooting pain down his legs. Pt offers he has been getting up to go to the bathroom w/o issues.
[2021-11-17] MEDS: dexAMETHasone 4 MG TABLET PO ×2 (13:50→21:29)
--- NOTE | 2021-11-17 18:11 | PC.NURSE ---
Pt is AxOx4, needs 1 person assistance and cooperative. VSS, pt still c/o lot of pain on his back and leg and received PRN Oxy 10mg x1 with good effect as well his routine tylenol. Drssing on his back is changed. Otherwise, no problem identified. Continue monitor.
[2021-11-17] MEDS: HYDROMORPHONE 0.5 MG INJ IV (20:04)
[2021-11-17] MEDS: TRAZODONE 50 MG TABLET PO (20:17)
[2021-11-17] MEDS: SENNOSIDES 8.6 MG TABLET 17.2 MG PO (20:17)
[2021-11-17] MEDS: ATORVASTATIN 20 MG TABLET 10 MG PO (20:17)
[2021-11-17] MEDS: GABAPENTIN 300 MG CAPSULE 900 MG PO (20:18)
[2021-11-17] MEDS: SODIUM CHLORIDE 0.9% FLUSH 10 ML IV (20:38)
[2021-11-17] MEDS: lisinopriL 20 MG TABLET PO (21:29)
[2021-11-17] MEDS: CYCLOBENZAPRINE 10 MG TABLET PO (23:28)
[2021-11-18 00:58] VITALS: BP 100/60; PULSE 73; RESP 18; TEMP 36.5; O2SAT 96
[2021-11-18 03:38] VITALS: BP 110/59; PULSE 64; RESP 18; TEMP 35.9; O2SAT 97
[2021-11-18] MEDS: ACETAMINOPHEN 325 MG TABLET 650 MG PO (05:40)
[2021-11-18] MEDS: OXYCODONE IR 5 MG TABLET 10 MG PO ×2 (05:40→09:15)
[2021-11-18] MEDS: dexAMETHasone 4 MG TABLET PO (06:55)
[2021-11-18 07:44] VITALS: BP 102/70; RESP 18; TEMP 36.2; O2SAT 98
--- NOTE | 2021-11-18 08:11 | P.DS_ITS ---
History of Present Illness History of Present Illness Date Patient Seen: 11/18/21 Time Patient Seen: 08:12 Chief complaint: TLIF Narrative: Patient is complaining of [id number] low back pain this morning. His sciatica is still there but somewhat improved. Overall he is feeling well like to be discharged home today. Discharge Providers Provider Date of admission: 11/15/21 05:57 Discharge Date: 11/18/21 Consults: 11/15/21 14:50 Consult to Occupational Therapy Evaluate & Treat Comment: Physician Instructions: Evaluate and treat Consult to Physical Therapy Evaluate & Treat Comment: Physician Instructions: Evaluate and Treat Discharge provider: Tawana Hinson PA-C Summary Hospital Course Discharge Diagnosis: 1. L2-3, L3-4, L4-5 spinal stenosis 2. History of L4-5 fusion 3. Lumbar spondylosis with radiculopathy Hospital Course: Operative Date/Time/Diagnoses Date of procedure: 11/15/21 Time of procedure: 07:45 Procedure & Clinicians Procedure: 1. L2-3, L3-4 posterolateral and posterior interbody fusion 2. L2-3, L3-4 posterior interbody cage placement 3. L4-5 posterior non-segmental instrumentation removal 4. L4-5 revision laminectomy with exploration of fusion 5. L2-3, L3-4, L4-5 posterior segmental instrumentation with pedicle screw placement 6. L4-5 posterolatearl fusion 7. [place] of bone marrow from iliac crest through a separate incision 8. Utilization of microsurgical technique and operating microscope 9. Utilization of robotic assisted fusion Same procedure as scheduled: Yes Indications: Patient has been having chronic back pain and worsening lumbar radiculopathy. Patient had prior fusion surgery in 2007 and a and has been doing reasonably well until approximately 3 years ago. Patient failed multiple conservative management with worsening pain weakness and numbness in his lower extremities, left worse than right.? Patient has been having difficulty performing activity of daily living.? After discussing risks benefits of treatment options, patient elected proceed with surgery. Surgeon: Seng Anderson Eap Counselor: Tawana Hinson Click Yes if Unassisted: No Anesthesia Type: General Operative Notes Closure Type: primary Specimen(s): none sent Prosthetic devices, grafts, tissues, transplants, or devices: Globus CREO MIS screws, Rise cages Estimated Blood Loss (mL): 100 Blood products transfused: none Status at Discharge Cognitive/behavioral status at discharge: at baseline, oriented Functional status at discharge: uses cane/walker Overall status at discharge: patient is progressing back to baseline Exam Vital Signs (past 8 hours): - 11/18/21 00:58 11/18/21 03:38 11/18/21 07:44 Temperature 97.7 F 96.7 F L 97.1 F L Pulse Rate 73 64 Respiratory Rate 18 18 18 Blood Pressure 100/60 110/59 L 102/70 Pulse Oximetry 96 97 98 Oxygen Flow Rate 0 0 Fraction of Inspired Oxygen 28 Oxygen Delivery Method Room Air Oxygen Flow Rate 0 Narrative Exam Narrative: Pleasant 71-year-old male, resting comfortably in his chair, no acute distress. Dressing is clean, dry, is somewhat rolled up the bottom edge. Bilateral lower extremity: Motor functions are grossly intact, sensation is grossly intact to light touch, calves are soft and nontender to palpation. Objective Labs Result Diagrams: 11/16/21 05:20 [facility] Medical History Anxiety about health HLD (hyperlipidemia) HTN (hypertension) Sciatica Spinal stenosis of lumbar region with neurogenic claudication Surgical History History of fusion of lumbar spine (2007) Hx of bilateral cataract extraction Social History household members: none Smoking Status: Former smoker alcohol intake: former Discharge Assessment & Plan Assessment and Plan Assessment: Stable status post L2 -3, L3-4 hardware removal and L2-3, L3-4 L4-5 TLIF Plan of Treatment: -mobilize with PT. Weightbearing as tolerated. Limit bending, lifting, twisting x6 weeks -continue with multimodal pain management. We will stop the Flexeril and try Vistaril instead. -plan is to send him with a Medrol Dosepak for his sciatica type pain. -DC home today once cleared by PT Discharge Plan Discharge Plan Patient Disposition: Home Discharge orders & Medications Prescriptions: New acetaminophen 500 mg capsule 500 mg PO Q4H MDD Max 3000 mg a day PRN (Reason: fever or pain) Qty: 90 0RF docusate sodium 100 mg Capsule 100 mg PO BID PRN (Reason: Constipation from narcotic pain meds) Qty: 20 0RF hydroxyzine pamoate 25 mg Capsule 25 mg PO Q4HR PRN (Reason: muscl spasms/pain/nausea) Qty: 60 0RF oxycodone 5 mg Tablet See Rx Instructions .ROUTE .COMPLEX PRN (Reason: Pain, Severe (7-10)) Qty: 42 0RF Rx Instructions: take 1-2 tablets every 4 hours as needed for moderate-severe postop pain methylprednisolone [Medrol (Shayne)] 4 mg tablets,dose pack 4 mg PO DAILY Qty: 21 0RF Continued cyclobenzaprine 10 mg Tablet 10 mg PO BEDTIME PRN (Reason: Muscle Spasm) trazodone 50 mg Tablet 50 mg PO BEDTIME lisinopril 20 mg Tablet 20 mg PO BEDTIME sildenafil 100 mg Tablet 100 mg PO DAILY PRN (Reason: Sexual Activity) Rx Instructions: administer 30 minutes to 4 hours before activity simvastatin 20 mg Tablet 20 mg PO BEDTIME gabapentin 300 mg Capsule 900 mg PO BEDTIME cholecalciferol (vitamin D3) [Vitamin D3] 10 mcg (400 unit) Capsule 10 mcg PO DAILY naproxen sodium [Aleve] 220 mg Capsule 220 mg PO DAILY PRN (Reason: Pain) Follow up/Referrals: Seng Anderson MD [Physician] - (10-14 days for postoperative visit) Diet/Activity/Treatments Diet: Diet as Tolerated Other treatments: Medications: -OTC Tylenol 500 mg 1 tablet every 4 hours as needed for pain/fever. Max 6 tablets per day. -Oxycodone 5 mg take 1-2 tablets every 4 hours as needed for moderate-severe pain (narcotic pain medication). -As needed medications: -Ducolax and /or MiraLax as needed for constipation from narcotic pain medications. -Pepcid AC as needed for stomach upset. -Vistaril (hydroxyine) 25mg 1 tab every 4 hours as needed for spasms /pain/nausea. Dressing/Wound care: -Keep dressing in place until postoperative follow-up office visit. -Okay to shower. Keep wound out of direct water stream. Can use PressNSeal plastic wrap to protect from shower stream. No soaking or submerging until all the scabs fall off (approximately 6 weeks). -Please call the office if dressing becomes wet, soiled, or saturated. Activities: -Limit bending, lifting, twisting x6 weeks. No deep bending (more than 90 degrees) or twisting at the waist. No lifting > 20 pounds. -Walk frequently. -Weight-bearing as tolerated. Use front wheeled walker, and progress to cane when safe. -Continue with home exercises as directed by your physical therapist. -Ice your incision as needed for pain/inflammation/swelling. Protect your skin with a folded pillowcase. -Incentive Spirometer (breathing device from hospital): 5-10xs every hour while awake for the first 1-2 weeks. Follow-up: -Follow-up with your surgeon or PA in the office in 10-14 days after surgery. -Follow-up with your surgeon 6 weeks postoperatively. Call the office if you have chest pain, shortness of breath, significant swelling that will not resolve with elevating, fever over 101?, significantly worsening pain. [facility]: [phone] Skin/Wound/Dressing Care Report to your healthcare provider any signs of infection, such as:: chills, fever, night sweats, unusual drainage and unusual redness Visit Report/Discharge Packet Instructions: DI for Prescription Opioid Use, DI for Transforaminal Lumbar Interbody Fusion Stand Alone Forms: Surgery Discharge Quality VTE Deep Vein Thrombosis/Pulmonary Embolism Present on Admission: No
--- NOTE | 2021-11-18 08:26 | CM.DPC ---
DCP Cont: Per MD, pt medically stable for discharge once pt works with PT. DCP met with patient this morning to inquire about HH and patient declines the need at this time. Pt states he has a lot of support and neighbors who are ready to help him when he get home. [place] and there are people close by all the time. Pt states that zohaib is going to pick him up today from the hospital once he is discharged. Pt thankful for DCP drop in. P: Pt to discharge home via uncle ABEL. Kaylee Louis RN/RAUDELP
--- NOTE | 2021-11-18 09:04 | PT.IPTN ---
Current Diagnoses Spinal stenosis, lumbar region with neurogenic claudication (11/15/21) Arthrodesis status (11/15/21) Surgery Performed Operation Date: 11/15/21 07:45 Actual Procedures p L2-3, L3-4 TLIF with posterior instrumentation, L4-5 HWR, L2-5 PSF with instrumentaion -Robot(Not Applicable) - Seng Anderson MD Physical Therapy Treatment Note M2 PT-IP Current Condition Start: 11/16/21 12:11 Freq: NEEDED Status: Active Protocol: Document 11/16/21 09:47 AB (Rec: 11/16/21 12:24 AB [id number]) Physical Therapy Current Condition Current Condition Evaluation Date 11/16/21 Treatment Diagnosis L2-3,3-4,4-5 TLIF; difficulty in walking Onset Date 11/15/21 M3 PT-IP Subjective Start: 11/16/21 12:11 Freq: NEEDED Status: Active Protocol: Document 11/18/21 08:50 KS (Rec: 11/18/21 09:15 KS [id number]) Subjective Physical Therapy Visit Type Type Treatment Note Visit Start Time 08:50 Visit Stop Time 09:04 Total Visit Minutes 14 Number of CHIEF COUNSEL Visits 2 Physical Therapy Visit Comments Patient Comments agreeable to do PT; M4 PT-IP Mobility and Gait Start: 11/16/21 12:11 Freq: NEEDED Status: Active Protocol: Document 11/18/21 08:50 [place] (Rec: 11/18/21 09:15 KS [id number]) PT-Transfer Assessment Sit to and From Stand Sit to and from Stand Independent,1 Person Assistance,Use of Upper Extremities Equipment Transfer Assistive Device None,Gait Belt,Front Wheeled Walker Orthotic/Prosthetic Devices or Brace: No Transfers Transfer Destination Bed Transfer Technique ambulated Transfer Ability Level of Assist Contact Guard Assistance,1 Person Assistance,Use of Upper Extremities Comments Mobility Comments Pt in chair upon arrival and agreeable to ambulate. Pt sit< >stand from chair independently and ambulated ~ 30 ft around room w/o AD SBA. Pt then ambulated additional [address] w/ FWW SBA and returned to room and sat EOB. Pt left in room w/ OT. Gait Assessment Gait Gait Assistance Required: Standby Assistance,1 Person Assist Distance (Feet) 120 Able to Maintain Weight Bearing Status Yes During Gait Assistive Devices Assistive Device Gait Belt,Front Wheeled Walker Orthotic/Prosthetic Devices or Brace: No Gait Deviations General Gait Pattern Decreased Stride Length, Decreased Feet Clearance,Wide Based Gait Factors Limiting Gait Function Factors Limiting Gait Function Decreased Activity Tolerance, Decreased Strength,Limited Range of Motion,Pain,Poor Balance Comments Gait Comments Please refer to mobility section for details. PT-Balance Assessment Sitting Balance and Reactions Static Sitting Balance Ability Good Dynamic Sitting Balance Ability Good Standing Balance and Reactions Static Standing Balance Ability Good Dynamic Standing Balance Ability Good Device Used FWW M5 PT-IP Objective Assessments Start: 11/16/21 12:11 Freq: NEEDED Status: Active Protocol: Document 11/16/21 09:47 AB (Rec: 11/16/21 12:24 AB [id number]) Orientation Orientation/Cognition Level of Alertness Alert Orientation Name,Place,Situation Language Function Ability No Deficits Noted Safety Awareness Decreased Safety Awareness Memory Description Short Term Impaired Gross Range of Motion Lower Extremity ROM Assessment Within Functional Limits Strength Lower Extremity Strength Assessment Bilaterally Impaired Hip 3+/5 Knee 4-/5 Coordination Assessment Gross Coordination Gross Coordination WNL Sensation Assessment Sensation Gross Sensation Right LE Impaired,Left LE Impaired Sensation Description Numbness Comments Sensation Comments stated that B anterior thighs are still numb Muscle Tone Muscle Tone WNL Yes M6 PT-IP Treatment Start: 11/16/21 12:11 Freq: NEEDED Status: Active Protocol: Document 11/18/21 08:50 KS (Rec: 11/18/21 09:15 KS [id number]) Physical Therapy Treatment Education Education Provided Precautions,Weight Bearing Status,Post-Op Packet,Safety M7 PT-IP Assessment and Plan Start: 11/16/21 12:11 Freq: NEEDED Status: Active Protocol: Document 11/18/21 08:50 KS (Rec: 11/18/21 09:15 KS [id number]) PT Summary Assessment and Plan Potential Rehabilitation Potential Good Status of Condition at Evaluation Evolving Summary Impairments Pain,ROM,Strength,Balance, Coordination,Sensation,Tone, Cognition,Bed Mobility, Transfers,Gait,Activity Tolerance Assessment Summary Pt has been ambulating independently around room and ambulated 30 ft w/o AD and then additional 120 ft w/ FWW SBA. Pt w/ good awareness of spinal precautions and good use of FWW. Pt had no LOB w/o AD, but encouraged pt to use FWW for time being until he is stronger. Pt may go home when medically stable. Goals Bed Mobility Goal Independent Transfer Goal Independent,Front Wheeled Walker Gait Goal Independent,Front Wheel Walker Gait Distance 200 Other Goals improve ambulation using forearm crutch 250 ft mod I up/down 2 steps L rail mod I Days to Meet Goals 10 Frequency of Treatment Frequency Of Treatment Twice a Day Treatment Plan Physical Therapy Treatment Plan Bed Mobility Training,Transfer Training,Gait Training, Therapeutic Exercise,Balance Retraining,Post Op Education, Discharge Planning,Hot or Cold Pack,Neuromuscular Re-ed, Coordination Retraining,Manual Therapy Precautions Lumbar Precautions Log Roll,No Twisting,Limit Bending,Lifting Restriction of 10 lbs,Gait Belt above Incisional Area Recommendations To Nursing Amount of Assist Needed 1 Person Assist Discharge Recommendations PT Discharge Recommendations Home with Assistance, Outpatient PT Transportation Needs at Discharge Private Vehicle
[2021-11-18] MEDS: hydrOXYzine pamoate 25 MG CAPSULE PO (09:15)
[2021-11-18] MEDS: DOCUSATE 100 MG CAPSULE PO (09:15)
[2021-11-18] MEDS: CHOLECALCIFEROL (VITAMIN D3) 400 UNIT TABLET PO (09:15)
--- NOTE | 2021-11-18 10:24 | OT.IP.TRT ---
Current Diagnoses Spinal stenosis, lumbar region with neurogenic claudication (11/15/21) Arthrodesis status (11/15/21) Surgery Performed Operation Date: 11/15/21 07:45 Actual Procedures p L2-3, L3-4 TLIF with posterior instrumentation, L4-5 HWR, L2-5 PSF with instrumentaion -Robot(Not Applicable) - Seng Anderson MD Occupational Therapy Treatment Note M2 OT-IP Current Condition Start: 11/16/21 13:09 Freq: Status: Active Protocol: Document 11/16/21 12:27 [facility] (Rec: 11/16/21 13:31 [facility] [id number]) Occupational Therapy Current Condition Current Condition Evaluation Date 11/16/21 Treatment Diagnosis S/p L2-3, L3-4 TLIF L4-5 HWR, L2-5 PSF with inst Diagnosis Onset Date 11/15/21 Post Operative Precautions Lumbar Precautions Log Roll,No Twisting,Limit Bending,Lifting Restriction of 10 lbs,Gait Belt above Incisional Area M3 OT- IP Subjective and Pain Start: 11/16/21 13:09 Freq: Status: Active Protocol: Document 11/18/21 09:50 [facility] (Rec: 11/18/21 12:44 [facility] [id number]) OT- Subjective Occupational Therapy Visit Type Type Treatment Note Visit Start Time 09:50 Visit Stop Time 10:24 Total Visit Minutes 34 Occupational Therapy Visit Comments Patient Comments Pt wanting to shower. Patient/Caregiver Goals To go home. OT Pain Assessment Pain When Pain Assessed At Rest Pain Present Pain Present Denied Pain M4 OT- IP ADL's Start: 11/16/21 13:09 Freq: Status: Active Protocol: Document 11/18/21 09:50 [facility] (Rec: 11/18/21 12:44 [facility] [id number]) OT XZY-Zjgm-Vexmcqu General Evaluation Self-Feeding Ability Independent OT ADL-Dressing General Eval Lower Body Dressing Ability Standby Assistance Comments OT Dressing Comments Pt able to use reptile farmer and sock aid to assist for dressing needs. Pt would benefit from getting LB dressing equipment for home use. OT ADL-Toileting Comments OT Toileting Comments Pt not having to go at this time. OT ADL-Bathing Bathing Type Bathing Type Shower General Evaluation Bathing Ability Minimal Assistance Areas Needing Assistance Wash/Dry Back,Wash/Dry Lower Extremities Comments OT Bathing Comments Pt will benefit from assist at home to help wash his back and look at his back dressing daily to note any issues or changes. Pt states to have his friend, Octavio assist him for showers. As the park has a shower norberto with a built in seat for the shower. M5 OT- IP IADL's Start: 11/16/21 13:09 Freq: Status: Active Protocol: Document 11/16/21 12:27 [facility] (Rec: 11/16/21 13:31 [facility] [id number]) OT-Instrumental Activities of Daily Living Home Safety Awareness Awareness of Need for Assistance at Home Good Awareness Ability to Problem Solve Emergency Able to Problem Solve Situations Meal Preparation Meal Preparation Comments Pt would benefit from assist if going home. Hand Tier Hand Tier Comments Pt would benefit from assist if going home. M6 OT- IP Functional Cognition Start: 11/16/21 13:09 Freq: Status: Active Protocol: Document 11/18/21 09:50 [facility] (Rec: 11/18/21 12:44 [facility] [id number]) Cognitive Factors Limiting Selfcare Function Cognitive Comments Cognitive Assessment Comments Pt needing cues to slow down and incorporate his back precautions. M7 OT- IP Mobility and Balance Start: 11/16/21 13:09 Freq: Status: Active Protocol: Document 11/18/21 09:50 [facility] (Rec: 11/18/21 12:44 [facility] [id number]) OT- Bed Mobility Assessment Supine to Sit Supine to Sit Assist Standby Assistance Sit to Supine Sit to Supine Assist Standby Assistance OT-Transfer Assessment Sit to and From Stand Sit to and from Stand Standby Assistance Transfers Transfer Ability Standby Assistance Technique Transfer Destination Bed,Chair,Shower Stall Devices Transfer Assistive Devices Gait Belt,Front Wheeled Walker OT- Balance Assessment Sitting Balance and Reactions Static Sitting Balance Ability Normal Dynamic Sitting Balance Ability Good Standing Balance and Reactions Static Standing Balance Ability Good Dynamic Standing Balance Ability Fair M8 OT- IP Objective Assessments Start: 11/16/21 13:09 Freq: Status: Active Protocol: Document 11/16/21 12:27 [facility] (Rec: 11/16/21 13:31 [facility] [id number]) OT-Muscle Tone Assessment Muscle Tone WNL Yes M9 OT- IP Assessment and Plan Start: 11/16/21 13:09 Freq: Status: Active Protocol: Document 11/18/21 09:50 [facility] (Rec: 11/18/21 12:44 [facility] [id number]) OT Summary Assessment and Plan Potential Rehabilitation Potential Good Analytic Complexity at Evaluation Low Summary OT Impairments Balance,Functional Mobility, Dressing,Toileting,Bathing, Shower Transfers Progress Towards Goals Progressing Toward Goals Assessment Summary Pt looking to go home today. Suggested pt get LB dressing equipment to assist with his needs. In addition would be helpful for someone to be there 24/7 initially for his safety. Pt insists the RV next to him is in eye sight of his and his neighbors are all going to be coming in and out to assist him. Goals Dressing Goal Independent Toileting Goal Independent Bathing Goal Minimal Assistance Toilet Transfer Goal Independent Shower Transfer Goal Independent Days to Meet Goals 3 Frequency of Treatment Frequency Of Treatment Once a Day Treatment Plan OT Treatment Plan ADL Training,Functional Mobility,Patient/Family Education,Discharge Planning Discharge Recommendations OT Discharge Recommendations Home with 24/7 Assist Available Home Equipment Needs shower chair, LB dressing equipment Transportation Needs at Discharge Private Vehicle
--- NOTE | 2021-11-18 10:56 | PC.NURSE ---
Addendum entered by Tina Walters R.N. 11/18/21 13:25: Pt ride here Escorted by stff Via W/C to waiting vehicle D/c in stable post op status. Addendum entered by Tina Walters R.N. 11/18/21 12:00: Home D/C instructions given to pt w/understanding Awaiting transportation after lunch Original Note: Pt med w/Oxycodone & Vistaril @ 0920 for discomfort. Had good relief. D/C orders received by provider D/C intact, w/o incidence. Had shower w/PT dsg to back CDI Pt transportation will be here around 1300. Sitting in chair, Call light w/in reach. Pt calls appropriately for needs.
== END 2021-11-18 13:25 | disposition home or self-care (01) | DRG 454 ==
PROVIDERS: Admitting Provider Orthopaedic Surgery Orthopaedic Surgery of the Spine; Referring Provider Physical Medicine & Rehabilitation; Visit Provider Orthopaedic Surgery Orthopaedic Surgery of the Spine
PROC: 0SG10AJ Fusion of 2 or more Lumbar Vertebral Joints with Interbody Fusion Device, Posterior Approach, Anterior Column, Open Approach (ICD-10-PCS; principal; 2021-11-15 07:45)
DX: M48.061 Spinal stenosis, lumbar region without neurogenic claudication (principal); M96.0 Pseudarthrosis after fusion or arthrodesis; M96.1 Postlaminectomy syndrome, not elsewhere classified; I10 Essential (primary) hypertension; E78.5 Hyperlipidemia, unspecified; Z98.1 Arthrodesis status; Z20.822 Contact with and (suspected) exposure to COVID-19; Z87.891 Personal history of nicotine dependence
CPT/HCPCS: 36415; 72100; 76000; 85014; 85018; 94760; 94762; 97116; 97162; 97165; 97530; 97535; C1713; C9290; J0171; J0330; J0690; J1100; J1170; J2250; J2405; J2704; J3010